=== PATIENT | male | born 1970 | race Caucasian/White ===

== ENCOUNTER 2020-12-23 12:34 | Emergency (ER) | payer MEDICAID ==
[~2020-12-23] VITALS: Ht 190.5 cm; Wt 103.6 kg
[2020-12-23 12:42] VITALS: BP 134/91; Ht 190.5 cm; Wt 103.6 kg
[2020-12-23] MEDS ORDERED: CHOLESTEROL MED (12:43)
[2020-12-23] MEDS ORDERED: BLOOD PRESSURE MED (12:43)
[2020-12-23] MEDS ORDERED: GLUCOPHAGE1000 MG PO (12:43)
[2020-12-23 13:16] LABS: CALC OSMOLALITY 284 mosm/kg (275-300); CALCIUM 8.4 mg/dL (8.5-10.1); CARBON DIOXIDE 29.4 mmol/L (21.0-32.0); CHLORIDE - SERUM 102 mmol/L (98-107); GLUCOSE 236 mg/dL (74-106); POTASSIUM - SERUM 4.1 mmol/L (3.5-5.1); SODIUM 138 mmol/L (136-145); UREA NITROGEN 15 mg/dL (7-18); eGFR NON AFRICAN AMERICAN 84 mL/min (90-120)
[2020-12-23 13:20] LABS: BASOPHILS 0.6 % (0-2); EOSINOPHILS 2.3 % (0-7); HEMATOCRIT 49.3 % (42.0-54.0); HEMOGLOBIN 16.6 g/dL (13.5-17.5); LYMPHOCYTES 10.9 % (15-50); MCH 32.1 pg (26.0-34.0); MCHC 33.7 g/dL (31.0-37.0); MCV 95.4 fL (80.0-100.0); MEAN PLATELET VOLUME 7.8 fL (7.4-10.4); MONOCYTES 6.4 % (2-11); NEUTROPHILS 79.8 % (40-80); PLATELET COUNT 288 10x3/uL (130-400); RBC 5.17 10x6/uL (4.20-6.10); RDW 13.4 % (11.5-14.5); WBC 10.8 10x3/uL (4.8-10.8)
[2020-12-23 13:25] LABS: ALBUMIN 3.9 g/dL (3.4-5.0); ALKALINE PHOSPHATASE 107 U/L (30-120); ALT (SGPT) 56 U/L (10-68); AMYLASE - SERUM 59 U/L (25-115); BILIRUBIN - TOTAL 0.35 mg/dL (0.2-1.3); LIPASE 158 U/L (73-393); PROTEIN - SERUM 7.5 g/dL (6.4-8.2); TROPONIN-I < 0.017 ng/mL (0.000-0.060)
[2020-12-23 13:30] LABS: BILIRUBIN NEGATIVE (NEGATIVE); KETONE NEGATIVE mg/dL (< 1+); NITRITE NEGATIVE (NEGATIVE); PH 5.5 (5.0-8.0); UROBILINOGEN NORMAL mg/dL (< 2)
[2020-12-23] MEDS ORDERED: FLORASTOR250 MG PO (14:20)
[2020-12-23] MEDS ORDERED: LEVAQUIN750 MG PO (14:20)
[2020-12-23] MEDS ORDERED: FLAGYL500 MG PO (14:20)
[2020-12-23] MEDS ORDERED: ZOFRAN ODT4 MG/UDTAB PO (14:38)
== END 2020-12-23 14:39 | disposition home or self-care (01) ==
LOC: D.ER 12:34
PROVIDERS: Family Medicine
DX: R10.9 Unspecified abdominal pain (principal); R19.7 Diarrhea, unspecified; R11.0 Nausea; E11.9 Type 2 diabetes mellitus without complications; I10 Essential (primary) hypertension